=== PATIENT | female | born 1965 | race Caucasian/White ===

== ENCOUNTER 2017-11-29 19:44 | Inpatient (IN) | payer SELFPAY ==
[~2017-11-29] VITALS: Ht 160 cm; Wt 108.6 kg
[2017-11-29] MEDS ORDERED: ALBUT/IPRATROP 3MG/0.5MG NEB 3 ML VIAL INH STA (20:09)
[2017-11-29] MEDS ORDERED: KETOROLAC TROMETHAMINE 30 MG/ML VIAL IV STA (20:09)
[2017-11-29] MEDS ORDERED: ACETAMINOPHEN 500 MG TAB PO STA (20:09)
[2017-11-29] MEDS ORDERED: SODIUM CHLORIDE 0.9% 1000ML 1,000 ML IV ONE (20:15)
--- NOTE | 2017-11-29 20:16 | EMERGENCY ROOM VISIT NOTE ---
History First contact with patient: 19:55 Chief Complaint: COUGH Stated Complaint: COUGH, VERY TIRED, LITTLE APPETITE Nursing Triage Summary: Cough with green expectorant for 4 days. Pt taking OTC meds with no relief. Pt' s O2 sats on arrival to room in 70's and 80's on room air. History of Present Illness The patient is a 52 year old female who presents to the Emergency Room with complaints of cough, fatigue and some shortness of breath for 1 week. She also has experienced nausea with one episode of vomiting. She has been coughing up green sputum. The patient has tried [id number] Tylenol cold and flu with no relief. She denies any known sick contacts. She did not get her flu vaccine this year. She denies any history of pulmonary disease. She denies any pain in her chest. Review of Systems 10 system review performed and negative unless noted in HPI or below Past Medical/Surgical History Otherwise healthy Social History Smoking Status: Never Smoker Occupation Status: unemployed Current/Historical Medications Scheduled Ascorbic Acid (Vitamin C), 1 CAP PO BID Multivitamins/Minerals (Mvi With Minerals), 1 TAB PO DAILY Scheduled PRN [id number] W/ Apap (Tylenol Cold & Flu Severe), 2 TABS PO TID PRN for FLU SYMPTOMS Physical Exam Vital Signs Date Time Temp Pulse Resp B/P (MAP) Pulse Ox O2 Delivery O2 Flow Rate FiO2 11/29/17 21:47 81 20 129/65 95 Nasal Cannula 4.0 11/29/17 20:06 Room Air 11/29/17 20:04 101 11/29/17 20:02 75 Room Air 11/29/17 20:01 Nasal Cannula 4.0 11/29/17 19:50 37.3 106 20 126/69 88 Room Air Physical Exam VITALS: Vitals are noted on the nurse's note and reviewed by myself. Vital signs stable. GENERAL: 52-year-old female, acutely ill in appearance,, SKIN: The skin was without rashes, erythema, edema, or bruising. HEAD: Normocephalic atraumatic. MOUTH: Mucous membranes dry. NECK: Supple without nuchal rigidity. No lymphadenopathy. Cervical spine is nontender. No JVD. HEART: Tachycardic, regular rhythm without murmurs gallops or rubs. LUNGS: Crackles at the left base. No significant wheezing. Positive tachypnea. ABDOMEN: Positive bowel sounds x 4.Soft, nontender, without organomegaly. No guarding or rebound tenderness. MUSCULOSKELETAL: No muscle atrophy, erythema, or edema noted. Strength 5/5 throughout. NEURO: Patient was alert and oriented to person place and time. Normal sensation to touch. No focal neurological deficits. Medical Decision & Procedures ER Provider Diagnostic Interpretation: Chest x-ray IMPRESSION: There is multifocal patchy airspace consolidation, typical in appearance for pneumonia. Clinical correlation will be required and radiographic follow-up to resolution is recommended. Electronically signed by: Anthony Jason M.D. 11/29/2017 9:43 PM Dictated Date/Time: 11/29/2017 9:42 PM The status of this report is Signed. Draft = Not yet reviewed or approved by Radiologist. Signed = Reviewed and approved by Radiologist. <AttendingPhy></AttendingPhy> <FamilyPhy>No Doctor, Assigned</FamilyPhy> < PrimaryPhy>No Doctor, Assigned</PrimaryPhy> <UnitNumber>[id number]</UnitNumber> <VisitNumber>[id number]</VisitNumber> <PatientName>DIANA CHAPMAN Grant</ PatientName> <DateOfBirth>1965</DateOfBirth> <Location>[facility]</Location> < ServiceDate>11/29/17</ServiceDate> <MNE>ESINDI</MNE> <OrderingPhy>Amy Pat PA-C</OrderingPhy> <OrderingPhyMNE>f rep ord dr carvalho</OrderingPhyMNE> < DictatingPhyMNE>f rep dict dr carvalho</DictatingPhyMNE> <CCListMNE>f rep ct mne</ CCListMNE> <AdmittingPhyMNE>f pt admit dr carvalho</AdmittingPhyMNE> <AttendingPhyMNE >f pt attend dr carvalho</AttendingPhyMNE> <ConsultingPhyMNE>f pt consult dr carvalho</ConsultingPhyMNE> <FamilyPhyMNE>f pt fam dr carvalho</FamilyPhyMNE> <OtherPhyMNE>f pt other dr carvalho</OtherPhyMNE Laboratory Results 11/29/17 20:10 Red Blood Count 4.28, Mean Corpuscular Volume 93.0, Mean Corpuscular Hemoglobin 32.0, Mean Corpuscular Hemoglobin Concent 34.4, Mean Platelet Volume 10.4, Neutrophils (%) (Auto) 60.5, Lymphocytes (%) (Auto) 29.6, Monocytes (%) (Auto) 9.5, Eosinophils (%) (Auto) 0.0, Basophils (%) (Auto) 0.2, Neutrophils # (Auto) 2.74, Lymphocytes # (Auto) 1.34, Monocytes # (Auto) 0.43, Eosinophils # (Auto) 0.00, Basophils # (Auto) 0.01 11/29/17 20:10 Test 11/29/17 20:05 11/29/17 20:10 Influenza Type A Antigen Neg for Influ A (NEG) Influenza Type B Antigen Neg for Influ B (NEG) White Blood Count 4.53 K/uL (4.8-10.8) Red Blood Count 4.28 M/uL (4.2-5.4) Hemoglobin 13.7 g/dL (12.0-16.0) Hematocrit 39.8 % (37-47) Mean Corpuscular Volume 93.0 fL (80-100) Mean Corpuscular Hemoglobin 32.0 pg (25-34) Mean Corpuscular Hemoglobin Concent 34.4 g/dl (32-36) Platelet Count 177 K/uL (130-400) Mean Platelet Volume 10.4 fL (7.4-10.4) Neutrophils (%) (Auto) 60.5 % Lymphocytes (%) (Auto) 29.6 % Monocytes (%) (Auto) 9.5 % Eosinophils (%) (Auto) 0.0 % Basophils (%) (Auto) 0.2 % Neutrophils # (Auto) 2.74 K/uL (1.4-6.5) Lymphocytes # (Auto) 1.34 K/uL (1.2-3.4) Monocytes # (Auto) 0.43 K/uL (0.11-0.59) Eosinophils # (Auto) 0.00 K/uL (0-0.5) Basophils # (Auto) 0.01 K/uL (0-0.2) RDW Standard Deviation 46.9 fL (36.4-46.3) RDW Coefficient of Variation 13.8 % (11.5-14.5) Immature Granulocyte % (Auto) 0.2 % Immature Granulocyte # (Auto) 0.01 K/uL (0.00-0.02) Anion Gap 8.0 mmol/L (3-11) Est Creatinine Clear Calc Drug Dose 93.8 ml/min Estimated GFR () 95.4 Estimated GFR (Non- 82.3 BUN/Creatinine Ratio 18.4 (10-20) Calcium Level 8.4 mg/dl (8.5-10.1) Total Bilirubin 0.3 mg/dl (0.2-1) Aspartate Amino Transf (AST/SGOT) 101 U/L (15-37) Alanine Aminotransferase (ALT/SGPT) 50 U/L (12-78) Alkaline Phosphatase 80 U/L (45-117) Total Protein 7.2 gm/dl (6.4-8.2) Albumin 2.8 gm/dl (3.4-5.0) Globulin 4.4 gm/dl (2.5-4.0) Albumin/Globulin Ratio 0.6 (0.9-2) Medications Administered Medications (Trade) Dose Ordered Sig/Roxanne Route Start Time Stop Time Status Last Admin Dose Admin Sodium Chloride 1,000 ml @ 999 mls/hr Q1H1M ONCE IV 11/29/17 20:15 11/29/17 21:15 DC 11/29/17 20:22 999 MLS/HR Ketorolac Tromethamine (Toradol Inj) 30 mg NOW STAT IV 11/29/17 20:09 11/29/17 20:11 DC 11/29/17 20:21 30 MG Acetaminophen (Tylenol Tab) 1,000 mg NOW STAT PO 11/29/17 20:09 11/29/17 20:11 DC 11/29/17 20:21 1,000 MG Albuterol/ Ipratropium (Duoneb) 3 ml ONE STAT INH 11/29/17 20:09 11/29/17 20:11 DC 11/29/17 20:21 3 ML Levofloxacin (Levaquin / D5W) 750 mg NOW ONCE IV 11/29/17 22:00 11/29/17 22:01 DC 11/29/17 21:57 750 MG ED Course Patient was seen and examined Vital signs including blood pressure were reviewed medications list was verified with patient Labs were obtained, and a saline lock was established The patient was medicated with Toradol 30 mg IV and Tylenol 1 g by mouth. She was hydrated with 1 L of normal saline. She was also given a DuoNeb treatment. Imaging was performed and reviewed The patient was reassessed. She was more comfortable. We discussed the results of her workup. She voiced understanding. Patient was given 1 dose of Levaquin 750 mg IV The case was discussed with case management and subsequently the [facility] service. They kindly agreed to admit the patient for further treatment Medical Decision Differential diagnosis: Bronchitis, pneumonia, influenza, other viral syndrome, This patient is a 52-year-old female that presents to the emergency department with flulike symptoms. On exam, she was tachypneic here check crackles at the left base. She was hypoxic. She was dehydrated. The patient's workup reveals a multifocal pneumonia. The patient remained hypoxic on room air. I do not feel comfortable sending this patient home. She does not have a primary care physician. She is not compliant. She will need to be admitted for further treatment. The patient is in agreement with this plan. This chart was completed in part utilizing [employer] Speech Voice Recognition software. Attempts were made to minimize the grammatical errors, random word insertions, pronoun errors and incomplete sentences. Any formal questions or concerns about the content, text or information contained within the body of this dictation should be directly addressed to the provider for clarification. Impression Primary Impression: Community acquired pneumonia Departure Information Referrals No Doctor, Assigned (PCP) Patient Instructions [facility]
[2017-11-29 20:20] LABS: BASO % 0.2 %; BASO ABS # 0.01 K/uL (0-0.2); HEMATOCRIT 39.8 % (37-47); HEMOGLOBIN 13.7 g/dL (12.0-16.0); IG# 0.01 K/uL (0.00-0.02); LYMPH % 29.6 %; LYMPH ABS # 1.34 K/uL (1.2-3.4); MEAN CORPUSCULAR HGB CONC 34.4 g/dl (32-36); MEAN PLATELET VOLUME 10.4 fL (7.4-10.4); MONO % 9.5 %; MONO ABS # 0.43 K/uL (0.11-0.59); NEUT % 60.5 %; NEUT ABS # 2.74 K/uL (1.4-6.5); PLATELET COUNT 177 K/uL (130-400); RED CELL DISTRIBUTION WIDTH CV 13.8 % (11.5-14.5); RED CELL DISTRIBUTION WIDTH SD 46.9 fL (36.4-46.3); WHITE BLOOD COUNT 4.53 K/uL (4.8-10.8)
[2017-11-29] MEDS ORDERED: ASCO1CAP3 PO (20:35)
[2017-11-29] MEDS ORDERED: PHEN-582 PO (20:35)
[2017-11-29] MEDS ORDERED: MULT-513 PO (20:35)
[2017-11-29 20:40] LABS: ALBUMIN 2.8 gm/dl (3.4-5.0); CALCIUM 8.4 mg/dl (8.5-10.1); CREATININE 0.81 mg/dl (0.60-1.20)
[2017-11-29 20:43] LABS: TOTAL PROTEIN 7.2 gm/dl (6.4-8.2)
[2017-11-29 21:06] LABS: INFLUENZA B ANTIGEN Neg for Influ B (NEG)
--- NOTE | 2017-11-29 21:44 | DIAGNOSTIC IMAGING REPORT ---
TWO VIEW CHEST CLINICAL HISTORY: Cough and fever. FINDINGS: PA and lateral chest radiographs are obtained. No prior studies are available for comparison at the time of dictation. The cardiomediastinal silhouette is unremarkable. There is multifocal patchy airspace consolidation, most confluence in the right midlung and the left mid to lower lung. No pleural effusion is identified. There is no pneumothorax. The bony thorax appears intact. IMPRESSION: There is multifocal patchy airspace consolidation, typical in appearance for pneumonia. Clinical correlation will be required and radiographic follow-up to resolution is recommended. Electronically signed by: Anthony Jason M.D. 11/29/2017 9:43 PM Dictated Date/Time: 11/29/2017 9:42 PM
[2017-11-29] MEDS ORDERED: LEVAQUIN 750MG / 150ML D5W IV ONE (22:00)
[2017-11-30] VITALS (9 sets, daily range): BP systolic 118–135; BP diastolic 69–81; PULSE 74–96; TEMP 36.3–36.9; O2SAT 90–96; Ht 160 cm; Wt 108.6 kg
[2017-11-30] MEDS ORDERED: ACETAMINOPHEN 325 MG TAB PO PRN (00:15)
[2017-11-30] MEDS ORDERED: POLYETHYLENE (MIRALAX) 17 GM PACK PO PRN (00:15)
[2017-11-30] MEDS ORDERED: MAGNESIUM HYDROXIDE SUSP 30 ML UDC PO PRN (00:15)
[2017-11-30] MEDS ORDERED: ONDANSETRON INJ 2 MG/ML 2 ML VIAL IV PRN (00:15)
--- NOTE | 2017-11-30 00:48 | History and Physical ---
History & Physical Date & Time of Service: Nov 30, 2017 at 00:20 Chief Complaint: Cough, Very Tired, Little Appetite Primary Care Physician: No Doctor, Assigned History of Present Illness Source: patient Patient is a 52 year old female with no significant past medical history that presents with a 1 week history of cough and fatigue. The patient states that her cough has progressed over the last week with productive clear to greenish sputum. She appreciates having sweats, chills, and intermittent fevers ( undocumented) over the last week as well. She denies any shortness of breath or muscle aches but appreciates wheezing. The patient does not have health insurance and has not followed with a doctor over the last 20 years, although she is generally healthy. She also appreciates feeling nauseous and having an episode of vomiting with minimal appetite. Social History Smoking Status: Never Smoker Occupational Status: unemployed Allergies Coded Allergies: Penicillins (Verified Allergy, Severe, swelling, 11/29/17) Home Medications Scheduled Ascorbic Acid (Vitamin C), 1 CAP PO BID Multivitamins/Minerals (Mvi With Minerals), 1 TAB PO DAILY Scheduled PRN Qtirjjlncphop-Yn-[id number] W/ Apap (Tylenol Cold & Flu Severe), 2 TABS PO TID PRN for FLU SYMPTOMS Review of Systems Constitutional: + fatigue, No fever, No chills, No sweats Respiratory: + cough, + sputum, + wheezing, No shortness of breath Cardiovascular: No chest pain, No palpitations Abdomen: + nausea, No pain, No vomiting, No diarrhea, No constipation Musculoskeletal: No joint pain, No muscle pain Genitourinary - Female: No dysuria Physical Exam Vital Signs Date Time Temp Pulse Resp B/P (MAP) Pulse Ox O2 Delivery O2 Flow Rate FiO2 11/30/17 00:02 37.2 80 20 123/60 95 Nasal Cannula 4.0 11/29/17 21:47 81 20 129/65 95 Nasal Cannula 4.0 11/29/17 20:06 Room Air 11/29/17 20:04 101 11/29/17 20:02 75 Room Air 11/29/17 20:01 Nasal Cannula 4.0 11/29/17 19:50 37.3 106 20 126/69 88 Room Air General Appearance: WD/WN, no apparent distress, + obese Head: normocephalic, atraumatic Eyes: normal inspection, sclerae normal Respiratory/Chest: chest non-tender, no respiratory distress, no accessory muscle use, + crackles, + wheezing Cardiovascular: regular rate, rhythm, no edema, no gallop Abdomen/GI: normal bowel sounds, non tender, soft Extremities/Musculoskelatal: no calf tenderness, no pedal edema Neurologic/Psych: alert, normal mood/affect, oriented x 3 Diagnostics Laboratory Results Results Past 24 Hours Test 11/29/17 20:05 11/29/17 20:10 Range/Units Influenza Type A Antigen Neg for Influ A NEG Influenza Type B Antigen Neg for Influ B NEG White Blood Count 4.53 4.8-10.8 K/uL Red Blood Count 4.28 4.2-5.4 M/uL Hemoglobin 13.7 12.0-16.0 g/dL Hematocrit 39.8 37-47 % Mean Corpuscular Volume 93.0 80-100 fL Mean Corpuscular Hemoglobin 32.0 25-34 pg Mean Corpuscular Hemoglobin Concent 34.4 32-36 g/dl Platelet Count 177 130-400 K/uL Mean Platelet Volume 10.4 7.4-10.4 fL Neutrophils (%) (Auto) 60.5 % Lymphocytes (%) (Auto) 29.6 % Monocytes (%) (Auto) 9.5 % Eosinophils (%) (Auto) 0.0 % Basophils (%) (Auto) 0.2 % Neutrophils # (Auto) 2.74 1.4-6.5 K/uL Lymphocytes # (Auto) 1.34 1.2-3.4 K/uL Monocytes # (Auto) 0.43 0.11-0.59 K/uL Eosinophils # (Auto) 0.00 0-0.5 K/uL Basophils # (Auto) 0.01 0-0.2 K/uL RDW Standard Deviation 46.9 36.4-46.3 fL RDW Coefficient of Variation 13.8 11.5-14.5 % Immature Granulocyte % (Auto) 0.2 % Immature Granulocyte # (Auto) 0.01 0.00-0.02 K/uL Sodium Level 137 136-145 mmol/L Potassium Level 4.0 3.5-5.1 mmol/L Chloride Level 102 98-107 mmol/L Carbon Dioxide Level 26 21-32 mmol/L Anion Gap 8.0 3-11 mmol/L Blood Urea Nitrogen 15 7-18 mg/dl Creatinine 0.81 0.60-1.20 mg/dl Est Creatinine Clear Calc Drug Dose 93.8 ml/min Estimated GFR () 95.4 Estimated GFR (Non- 82.3 BUN/Creatinine Ratio 18.4 10-20 Random Glucose 97 70-99 mg/dl Calcium Level 8.4 8.5-10.1 mg/dl Total Bilirubin 0.3 0.2-1 mg/dl Aspartate Amino Transf (AST/SGOT) 101 15-37 U/L Alanine Aminotransferase (ALT/SGPT) 50 12-78 U/L Alkaline Phosphatase 80 45-117 U/L Total Protein 7.2 6.4-8.2 gm/dl Albumin 2.8 3.4-5.0 gm/dl Globulin 4.4 2.5-4.0 gm/dl Albumin/Globulin Ratio 0.6 0.9-2 Impression Assessment and Plan Patient is a 52 year old female with no significant past medical history that presents with a 1 week history of cough and fatigue Community Acquired Pneumonia - CXR: There is multifocal patchy airspace consolidation, typical in appearance for pneumonia. Clinical correlation will be required and radiographic follow-up to resolution is recommended. - WBC 4.53 (L) --> Repeat CBC, BMP tomorrow AM - Levaquin 750mg IV q24h (Severe Allergy to penicillin) - Supplemental Oxygen to maintain SpO2 > 90% - Duonebs qid + q3h PRN for SOB - IV NS @ 100mls/hr - Regular Diet DVT - Lovenox Code Status - Full Resuscitation Resident Physician Supervision Note: I was present with Dr. Alvarado during the history and exam. I discussed the case with the resident and agree with the findings and plan as documented in the note. Any exceptions or clarifications are listed here: 52 y/o F who denies a PMH but has not visited a physician in 20 yrs. Presents with SOB, productive cough and fever. CXR is consistent with multifocal PNM. Her 02 sat was as low as mid 70s without 02. OE AAO x 3 1,2 R BL crackles present NT, ND No CCE P: Placed on abx, nebs, 02 - cultures are pending Documented By: Lamin Torres Resuscitation Status Full Code VTE Prophylaxis Will order VTE Prophylaxis: Yes Resident Tracking Resident Involvement: Resident Care Provided Care Provided: Adult Hospital Medicine
[2017-11-30] MEDS: SODIUM CHLORIDE 0.9% 1000ML 1,000 ML IV SCH ×2 (01:58→13:12)
[2017-11-30] MEDS: ALBUT/IPRATROP 3MG/0.5MG NEB 3 ML VIAL INH SCH ×4 (07:05→19:38)
[2017-11-30 07:12] LABS: BASO % 0.3 %; BASO ABS # 0.01 K/uL (0-0.2); HEMATOCRIT 36.4 % (37-47); HEMOGLOBIN 12.3 g/dL (12.0-16.0); IG# 0.01 K/uL (0.00-0.02); LYMPH % 40.7 %; LYMPH ABS # 1.49 K/uL (1.2-3.4); MEAN CELL VOLUME 93.8 fL (80-100); MEAN CORPUSCULAR HEMOGLOBIN 31.7 pg (25-34); MEAN CORPUSCULAR HGB CONC 33.8 g/dl (32-36); MEAN PLATELET VOLUME 9.9 fL (7.4-10.4); MONO % 8.5 %; MONO ABS # 0.31 K/uL (0.11-0.59); NEUT % 50.2 %; NEUT ABS # 1.84 K/uL (1.4-6.5); PLATELET COUNT 184 K/uL (130-400); RED CELL DISTRIBUTION WIDTH CV 13.8 % (11.5-14.5); RED CELL DISTRIBUTION WIDTH SD 47.5 fL (36.4-46.3); WHITE BLOOD COUNT 3.66 K/uL (4.8-10.8)
[2017-11-30] MEDS: ENOXAPARIN 40 MG/0.4 ML SYR SQ SCH (08:47)
--- NOTE | 2017-11-30 14:23 | Hospitalist Progress Note ---
Hospitalist Progress Note Date of Service Nov 30, 2017. (Alondra Nesbitt PA-C) Subjective Pt evaluation today including: conversation w/ patient, physical exam, chart review, lab review, review of studies Pain: None PO Intake: Good Voiding: no voiding problems The patient was seen and examined this morning. Her symptoms of initial cough, sore throat, and nausea with 1 episode of vomiting started 1 week ago, on Thursday she thought she was starting to feel improved, but then began to notice progressive shortness of breath with simple things like walking in a grocery store. Pt reports doing better today. She has been ambulating about the room without difficulty and not feeling short of breath. She is still wearing 2 L O2 and reports feeling better with this. She is tolerating a diet without difficulty, and reports improvement in her appetite. She denies fever, chills or sweats overnight. No chest pain, palpitations, flutter or shortness of breath at rest. She had one loose bowel movement today. Constitutional: No fever, No chills, No sweats, No fatigue ENT: No nasal symptoms, No sore throat Respiratory: + cough, + sputum (white, occasional), No wheezing, No dyspnea at rest Cardiovascular: No chest pain, No palpitations Abdomen: No pain, No nausea, No vomiting, No diarrhea, No constipation Musculoskeletal: No joint pain, No muscle pain Female : No dysuria Neurologic: No weakness Endo: No fatigue (Alondra Nesbitt PA-C) Objective Vital Signs Date Time Temp Pulse Resp B/P (MAP) Pulse Ox O2 Delivery O2 Flow Rate FiO2 11/30/17 11:07 93 16 94 Nasal Cannula 2.0 11/30/17 10:24 Nasal Cannula 2.0 11/30/17 08:19 36.9 83 20 118/73 (88) 93 Nasal Cannula 2.0 11/30/17 07:10 74 16 94 Nasal Cannula 2.0 11/30/17 02:25 Nasal Cannula 2.0 11/30/17 02:04 36.7 92 20 135/69 90 Room Air 11/30/17 01:22 80 20 133/75 94 Nasal Cannula 2.0 11/30/17 00:02 37.2 80 20 123/60 95 Nasal Cannula 4.0 11/29/17 21:47 81 20 129/65 95 Nasal Cannula 4.0 11/29/17 20:06 Room Air 11/29/17 20:04 101 11/29/17 20:02 75 Room Air 11/29/17 20:01 Nasal Cannula 4.0 11/29/17 19:50 37.3 106 20 126/69 88 Room Air (Alondra Nesbitt PA-C) Physical Exam General Appearance: WD/WN, no apparent distress, + obese (morbid) Eyes: PERRL, EOMI ENT: hearing grossly normal, pharynx normal Neck: supple, no JVD Respiratory/Chest: chest non-tender, no respiratory distress, no accessory muscle use, + pertinent finding (on 2 L via NC, + faint crackles in the RML, RLL and the left mid to lower lobe. No wheezing. ) Cardiovascular: regular rate, rhythm, no murmur Abdomen: normal bowel sounds, non tender, soft Extremities: non-tender, no pedal edema, no calf tenderness Neurologic/Psychiatric: alert, oriented x 3, + pertinent finding (slightly anxious affect) Skin: normal color, warm/dry (Alondra Nesbitt, PA-C) Laboratory Results Last 24 Hours Test 11/29/17 20:05 11/29/17 20:10 11/30/17 01:00 11/30/17 06:35 Influenza Type A Antigen Neg for Influ A Influenza Type B Antigen Neg for Influ B White Blood Count 4.53 K/uL 3.66 K/uL Red Blood Count 4.28 M/uL 3.88 M/uL Hemoglobin 13.7 g/dL 12.3 g/dL Hematocrit 39.8 % 36.4 % Mean Corpuscular Volume 93.0 fL 93.8 fL Mean Corpuscular Hemoglobin 32.0 pg 31.7 pg Mean Corpuscular Hemoglobin Concent 34.4 g/dl 33.8 g/dl Platelet Count 177 K/uL 184 K/uL Mean Platelet Volume 10.4 fL 9.9 fL Neutrophils (%) (Auto) 60.5 % 50.2 % Lymphocytes (%) (Auto) 29.6 % 40.7 % Monocytes (%) (Auto) 9.5 % 8.5 % Eosinophils (%) (Auto) 0.0 % 0.0 % Basophils (%) (Auto) 0.2 % 0.3 % Neutrophils # (Auto) 2.74 K/uL 1.84 K/uL Lymphocytes # (Auto) 1.34 K/uL 1.49 K/uL Monocytes # (Auto) 0.43 K/uL 0.31 K/uL Eosinophils # (Auto) 0.00 K/uL 0.00 K/uL Basophils # (Auto) 0.01 K/uL 0.01 K/uL RDW Standard Deviation 46.9 fL 47.5 fL RDW Coefficient of Variation 13.8 % 13.8 % Immature Granulocyte % (Auto) 0.2 % 0.3 % Immature Granulocyte # (Auto) 0.01 K/uL 0.01 K/uL Sodium Level 137 mmol/L Potassium Level 4.0 mmol/L Chloride Level 102 mmol/L Carbon Dioxide Level 26 mmol/L Anion Gap 8.0 mmol/L Blood Urea Nitrogen 15 mg/dl Creatinine 0.81 mg/dl Est Creatinine Clear Calc Drug Dose 93.8 ml/min Estimated GFR () 95.4 Estimated GFR (Non- 82.3 BUN/Creatinine Ratio 18.4 Random Glucose 97 mg/dl Calcium Level 8.4 mg/dl Total Bilirubin 0.3 mg/dl Aspartate Amino Transf (AST/SGOT) 101 U/L Alanine Aminotransferase (ALT/SGPT) 50 U/L Alkaline Phosphatase 80 U/L Total Protein 7.2 gm/dl Albumin 2.8 gm/dl Globulin 4.4 gm/dl Albumin/Globulin Ratio 0.6 Urine Color YELLOW Urine Appearance CLEAR Urine pH 5.5 Urine Specific [place] 1.019 Urine Protein 2+ Urine Glucose (UA) NEG Urine Ketones TRACE Urine Occult Blood NEG Urine Nitrite NEG Urine Bilirubin NEG Urine Urobilinogen NEG Urine Leukocyte Esterase NEG Urine WBC (Auto) 1-5 /hpf Urine RBC (Auto) 5-10 /hpf Urine Hyaline Casts (Auto) 5-10 /lpf Urine Epithelial Cells (Auto) >30 /lpf Urine Bacteria (Auto) NEG Urine Pathogenic Casts 5-10 GRANULAR CASTS /lpf Prothrombin Time 11.0 SECONDS Prothromb Time International Ratio 1.0 (Alondra Nesbitt PA-C) Assessment and Plan Patient is a 52 year old female with no significant past medical history that presents with a 1 week history of cough and fatigue Community Acquired Pneumonia Right midlung and the left mid to lower lung. - CXR: There is multifocal patchy airspace consolidation, typical in appearance for pneumonia. Clinical correlation will be required and radiographic follow-up to resolution is recommended. - WBC 4.53 (L) --> Repeat CBC, BMP tomorrow AM - Levaquin 750mg IV q24h x 7 day course started on 11/29. - Supplemental Oxygen to maintain SpO2 > 90% - nursing asked to do a nonformal 2 step today, also encourage ambulation. - Duonebs qid + q3h PRN for SOB - Stop IVFs as pt is tolerating a regular diet and drinking without nausea or vomiting. - Regular Diet DVT- Lovenox Code Status - Full Resuscitation Disposition: From home, lives alone, does not have a PCP, will need to establish prior to discharge - possible in 24 hours. (Alondra Nesbitt, CHIDIC) Reviewed: Pt Seen/Exam by Me (Monet Werner, ) History Feeling improved. Tried to walk the halls without O2 but sats dropped. Doing well at rest. Tolerating PO. Better but not at baseline. Agree with HPI/ROS as per PA (Monet Werner, DO) General Appearance: no apparent distress, obese Eye Exam: bilateral eye normal inspection, bilateral eye other (nml sclera) Respiratory: normal breath sounds, no respiratory distress Cardiovascular: normal peripheral pulses, regular rate, rhythm Gastrointestinal: non tender, soft Extremities: non-tender, no pedal edema Neurologic/Psychiatric: alert, normal mood/affect, oriented x 3 Skin Characteristics: normal color, warm/dry (Monet Werner, DO) Assessment/Plan Agree with plan as outlined above CAP with hypoxia, improving on abx Wean O2 as able no hx of baseline lung disease or home o2 use Flu neg (Monet Werner, DO)
[2017-11-30] MEDS: LEVOFLOXACIN / D5W 750 MG in PREMIXED IN D5W 150 ML IV SCH (21:29)
[2017-12-01] VITALS (9 sets, daily range): BP systolic 134–156; BP diastolic 86–88; PULSE 83–98; TEMP 36.6–36.7; O2SAT 84–99
[2017-12-01] MEDS: ALBUT/IPRATROP 3MG/0.5MG NEB 3 ML VIAL INH SCH ×4 (07:10→19:32)
[2017-12-01 08:10] LABS: HEMATOCRIT 34.1 % (37-47); HEMOGLOBIN 11.6 g/dL (12.0-16.0); MEAN CELL VOLUME 93.9 fL (80-100); MEAN PLATELET VOLUME 9.8 fL (7.4-10.4); PLATELET COUNT 208 K/uL (130-400); RED CELL DISTRIBUTION WIDTH CV 13.6 % (11.5-14.5); WHITE BLOOD COUNT 3.19 K/uL (4.8-10.8)
[2017-12-01] MEDS: ENOXAPARIN 40 MG/0.4 ML SYR SQ SCH (08:10)
[2017-12-01 08:42] LABS: CALCIUM 8.9 mg/dl (8.5-10.1); CREATININE 0.61 mg/dl (0.60-1.20); POTASSIUM 3.8 mmol/L (3.5-5.1)
--- NOTE | 2017-12-01 15:15 | Hospitalist Progress Note ---
Hospitalist Progress Note Date of Service Dec 01, 2017. (Alondra Nesbitt PA-C) Subjective Pt evaluation today including: conversation w/ patient, physical exam, chart review, lab review, review of studies Pain: None PO Intake: Good Voiding: no voiding problems The patient was seen and examined this morning. Patient reports feeling improved compared to yesterday. She has been up and ambulating about the halls felt significantly short of breath yesterday. She has not yet been up to walk around today. Patient notes her cough is less significant, but that she is still bringing up small amount of white sputum. She denies any sort of shortness of breath at rest. She denies any fevers, chills or sweats overnight. A good prescription card was handed to her for reduction in cost as she does not have insurance. Patient has also been set up for follow-up with Sai Schmitt as an outpatient for follow up and she is questioning the cost of this appointment. Discussion was held regarding cost of follow-up appointment compared to an ER versus hospital stay and she is agreeable to going to the follow up appointment. Case management has looked into the cost of Levaquin and has found to be only $9 [facility] so that this is affordable for her at the time of discharge. Additional Comments: Constitutional: No fever, No chills, No sweats, No fatigue ENT: No nasal symptoms, No sore throat Respiratory: + cough, + sputum (white, occasional), No wheezing, No dyspnea at rest Cardiovascular: No chest pain, No palpitations Abdomen: No pain, No nausea, No vomiting, No diarrhea, No constipation Musculoskeletal: No joint pain, No muscle pain Female : No dysuria Neurologic: No weakness Endo: No fatigue (Alondra Nesbitt PA-C) Objective Vital Signs Date Time Temp Pulse Resp B/P (MAP) Pulse Ox O2 Delivery O2 Flow Rate FiO2 12/01/17 11:19 88 16 91 Room Air 12/01/17 08:00 95 Nasal Cannula 2.0 12/01/17 07:10 83 16 93 Nasal Cannula 2.0 12/01/17 06:59 36.7 85 20 134/87 (103) 95 2.0 12/01/17 00:00 Nasal Cannula 2.0 11/30/17 23:29 36.9 96 20 121/73 (89) 96 2.0 11/30/17 19:39 92 16 94 Nasal Cannula 2.0 11/30/17 16:00 91 Nasal Cannula 2.0 11/30/17 15:39 36.3 96 24 124/81 (95) 93 2.0 11/30/17 15:32 85 16 93 Nasal Cannula 2.0 (Alondra Nesbitt PA-C) Physical Exam Notes: General Appearance: WD/WN, no apparent distress, + obese (morbid) Eyes: PERRL, EOMI ENT: hearing grossly normal, pharynx normal Neck: supple, no JVD Respiratory/Chest: chest non-tender, no respiratory distress, no accessory muscle use, + pertinent finding (on room air, + faint crackles in the RML and RLL sounds slightly improved, crackles also in left mid to lower lobe.+ Expiratory wheezing in Lmid to lower lobe ) Cardiovascular: regular rate, rhythm, no murmur Abdomen: normal bowel sounds, non tender, soft Extremities: non-tender, no pedal edema, no calf tenderness Neurologic/Psychiatric: alert, oriented x 3 Skin: normal color, warm/dry (Alondra Nesbitt PA-C) Laboratory Results Last 24 Hours Test 12/01/17 07:48 White Blood Count 3.19 K/uL Red Blood Count 3.63 M/uL Hemoglobin 11.6 g/dL Hematocrit 34.1 % Mean Corpuscular Volume 93.9 fL Mean Corpuscular Hemoglobin 32.0 pg Mean Corpuscular Hemoglobin Concent 34.0 g/dl RDW Standard Deviation 47.0 fL RDW Coefficient of Variation 13.6 % Platelet Count 208 K/uL Mean Platelet Volume 9.8 fL Sodium Level 138 mmol/L Potassium Level 3.8 mmol/L Chloride Level 105 mmol/L Carbon Dioxide Level 25 mmol/L Anion Gap 8.0 mmol/L Blood Urea Nitrogen 8 mg/dl Creatinine 0.61 mg/dl Est Creatinine Clear Calc Drug Dose 124.6 ml/min Estimated GFR () 119.1 Estimated GFR (Non- 102.8 BUN/Creatinine Ratio 13.7 Random Glucose 105 mg/dl Calcium Level 8.9 mg/dl (Filipowicz,Alondra G., PA-C) Assessment and Plan Patient is a 52 year old female with no significant past medical history that presents with a 1 week history of cough and fatigue Community Acquired Pneumonia Right midlung and the left mid to lower lung. - CXR: There is multifocal patchy airspace consolidation, typical in appearance for pneumonia. Clinical correlation will be required and radiographic follow-up to resolution is recommended. - WBC 3K, low but remains stable. Will follow. - Levaquin 750mg IV q24h started on 11/29. - CM has been on the Levaquin will only cost $9 at [facility]. Will complete a 7 day course. - Supplemental Oxygen to maintain SpO2 > 90% - encourage ambulation. -Patient was not on any oxygen at home, wean as tolerated. - Duonebs qid + q3h PRN for SOB - Continue regular diet and drinking without nausea or vomiting. - Regular Diet DVT- Lovenox, ambulatory Code Status - Full Resuscitation Disposition: From home, lives alone, does not have a PCP- set up with Sai Schmitt as an outpatient. Likely discharge tomorrow. (Alondra Nesbitt PA-C) Reviewed: Pt Seen/Exam by Me (Monet Werner DO) History Pt continues to desat with ambulation without O2. Feels fine with both rest and ambulation, but is low when they check her. Tolerating PO. Agree with HPI/ROS as noted by PA (Monet Werner, ) General Appearance: no apparent distress, obese Eye Exam: bilateral eye normal inspection, bilateral eye other (nml sclera) Respiratory: no respiratory distress, crackles Cardiovascular: normal peripheral pulses, regular rate, rhythm Gastrointestinal: non tender, soft Extremities: non-tender, no pedal edema Neurologic/Psychiatric: alert, normal mood/affect Skin Characteristics: normal color, warm/dry (Monet Werner DO) Assessment/Plan Agree with plan as outlined above CAP with hypoxia, improving on abx Wean O2 as able no hx of baseline lung disease or home o2 use Flu neg (Monet Werner, )
[2017-12-01] MEDS: LEVOFLOXACIN / D5W 750 MG in PREMIXED IN D5W 150 ML IV SCH (21:27)
[2017-12-02 07:07] VITALS: PULSE 87; O2SAT 94
[2017-12-02] MEDS: ALBUT/IPRATROP 3MG/0.5MG NEB 3 ML VIAL INH SCH ×4 (07:07→19:46)
[2017-12-02 07:34] VITALS: BP 122/79; PULSE 92; TEMP 36.8; O2SAT 91
[2017-12-02] MEDS: ENOXAPARIN 40 MG/0.4 ML SYR SQ SCH (08:11)
[2017-12-02 11:04] VITALS: PULSE 102; O2SAT 97
[2017-12-02] MEDS ORDERED: OPTIRAY 320 IV PRN (11:15)
--- NOTE | 2017-12-02 12:47 | DIAGNOSTIC IMAGING REPORT ---
(CHEST FOR PE) ANGIO WITH CT DOSE: 493.65 mGy.cm HISTORY: Chest pain dyspnea TECHNIQUE: Multiaxial CT images of the chest were performed following the intravenous administration of contrast to evaluate the pulmonary arteries. Maximal intensity projection images were also obtained. A dose lowering technique was utilized adhering to the principles of ALARA. COMPARISON STUDY: None. FINDINGS: Diffuse bilateral parenchymal infiltrative change. The thoracic aorta is normal in course and caliber. There is pulmonary vasculature enhances uniformly. There are no significant filling defects. Mild cardiomegaly. IMPRESSION: 1. No evidence for pulmonary embolus. 2. Diffuse bilateral parenchymal infiltrative change The above report was generated using voice recognition software. It may contain grammatical, syntax or spelling errors. Electronically signed by: Ayden Hedrick M.D. 12/02/2017 12:46 PM Dictated Date/Time: 12/02/2017 12:38 PM
--- NOTE | 2017-12-02 13:44 | Hospitalist Progress Note ---
Hospitalist Progress Note Date of Service Dec 02, 2017. (Alondra Nesbitt PA-C) Subjective Pt evaluation today including: conversation w/ patient, physical exam, chart review, lab review, review of studies Pain: None PO Intake: Good Voiding: no voiding problems The patient was seen and examined this morning. Pt reports doing better today compared to yesterday. She is still having a cough but is asking if she can go home soon because she's unable to sleep in the hospital. She denies feeling short of breath with ambulation. She is on room air during our conversation and was finishing breakfast without difficulty. Pt ambulated in the halls and dropped to 80% on RA, and became tachycardic at 147. Additional Comments: Constitutional: No fever, No chills, No sweats, No fatigue ENT: No nasal symptoms, No sore throat Respiratory: + cough, + sputum (clear, occasional), No wheezing, No dyspnea at rest Cardiovascular: No chest pain, No palpitations Abdomen: No pain, No nausea, No vomiting, No diarrhea, No constipation Musculoskeletal: No joint pain, No muscle pain Female : No dysuria Neurologic: No weakness Endo: No fatigue (Alondra Nesbitt PA-C) Objective Vital Signs Date Time Temp Pulse Resp B/P (MAP) Pulse Ox O2 Delivery O2 Flow Rate FiO2 12/02/17 11:04 102 16 97 Nasal Cannula 4.0 12/02/17 08:00 Room Air 1.5 Nasal Cannula 12/02/17 07:34 36.8 92 20 122/79 (93) 91 Nasal Cannula 4.0 12/02/17 07:07 87 16 94 Nasal Cannula 4.0 12/02/17 00:15 Nasal Cannula 2.0 12/01/17 23:39 36.7 89 20 156/86 (109) 99 2.0 12/01/17 19:32 98 16 84 Room Air 12/01/17 15:59 95 Room Air 12/01/17 15:55 36.6 94 18 152/88 (109) 97 Room Air 12/01/17 15:29 91 16 94 Room Air (Alondra Nesbitt PA-C) Physical Exam Notes: General Appearance: WD/WN, no apparent distress, + obese (morbid) Eyes: PERRL, EOMI ENT: hearing grossly normal, pharynx normal Neck: supple, no JVD Respiratory/Chest: chest non-tender, no respiratory distress, no accessory muscle use, + pertinent finding (on RA, + faint crackles in the RML, RLL and the left mid to lower lobe. No wheezing. ) Cardiovascular: tachycardic MC=349, no murmur Abdomen: normal bowel sounds, non tender, soft Extremities: non-tender, no pedal edema, no calf tenderness Neurologic/Psychiatric: alert, oriented x 3, + pertinent finding (slightly anxious affect) Skin: normal color, warm/dry (Alondra Nesbitt, KYLE) Assessment and Plan Patient is a 52 year old female with no significant past medical history that presents with a 1 week history of cough and fatigue Community Acquired Pneumonia Right midlung and the left mid to lower lung. - CXR: There is multifocal patchy airspace consolidation, typical in appearance for pneumonia. Clinical correlation will be required and radiographic follow-up to resolution is recommended. - CTPE completed today with increased hypoxia and drop to 80% on RA with ambulation and tachycardia up to 140s. - NEGATIVE - WBC 3K, low but remains stable. Will follow. - Levaquin 750mg IV q24h started on 11/29. - CM has been on the Levaquin will only cost $9 at [facility]. Will complete a 7 day course. - Supplemental Oxygen to maintain SpO2 > 90% - encourage ambulation. -Patient was not on any oxygen at home, wean as tolerated. - Duonebs qid + q3h PRN for SOB - Continue regular diet and drinking without nausea or vomiting. - Regular Diet DVT- Lovenox subq, ambulatory Code Status - Full Resuscitation Disposition: From home, lives alone, does not have a PCP- set up with Sai Schmitt as an outpatient. Possible dc in 1-2days. (Alondra Nesbitt, KYLE) Reviewed: Pt Seen/Exam by Me (Monet Werner DO) History Pt states that she does not feel SOB when it is noted that she is desating. She states she feels fine. No chest pain. No lightheadedness/dizziness. Agree with HPI/ROS as noted by PA (Monet Werner DO) Comments General Appearance: no apparent distress, obese Eye Exam: bilateral eye normal inspection, bilateral eye other (nml sclera) Respiratory: no respiratory distress, crackles Cardiovascular: normal peripheral pulses, regular rhythm, tachycardia Gastrointestinal: non tender, soft Extremities: non-tender, no pedal edema Neurologic/Psychiatric: alert, normal mood/affect Skin Characteristics: normal color, warm/dry (Monet Werner DO) Assessment/Plan Agree with plan as outlined above CAP with hypoxia, improving on abx but still with desats on RA with ambulation in the 80s. Wean O2 as able CTA done given tachycardia and ongoing desats, but neg no hx of baseline lung disease or home o2 use Flu neg (Monet Werner, )
[2017-12-02 14:41] VITALS: PULSE 115; O2SAT 93
[2017-12-02] MEDS: ACETYLCYSTEINE 20% INHAL SOLN ***DISPENSED BY RESP. INH SCH ×2 (14:41→19:46)
[2017-12-02 15:52] VITALS: BP 147/73; PULSE 125; TEMP 36.4; O2SAT 92
[2017-12-02 19:46] VITALS: PULSE 101; O2SAT 95
[2017-12-02] MEDS: LEVOFLOXACIN 750 MG TAB PO SCH (20:34)
[2017-12-03] VITALS (8 sets, daily range): BP systolic 134–143; BP diastolic 82–87; PULSE 84–104; TEMP 36.5–37; O2SAT 90–92
[2017-12-03] MEDS: ACETYLCYSTEINE 20% INHAL SOLN ***DISPENSED BY RESP. INH SCH ×4 (07:23→19:00)
[2017-12-03] MEDS: ALBUT/IPRATROP 3MG/0.5MG NEB 3 ML VIAL INH SCH ×4 (07:23→19:00)
[2017-12-03 07:52] LABS: HEMOGLOBIN 11.9 g/dL (12.0-16.0); MEAN CELL VOLUME 94.1 fL (80-100); MEAN PLATELET VOLUME 9.6 fL (7.4-10.4); PLATELET COUNT 299 K/uL (130-400); RED CELL DISTRIBUTION WIDTH CV 13.4 % (11.5-14.5); RED CELL DISTRIBUTION WIDTH SD 46.3 fL (36.4-46.3); WHITE BLOOD COUNT 4.47 K/uL (4.8-10.8)
[2017-12-03 08:18] LABS: CREATININE 0.64 mg/dl (0.60-1.20)
[2017-12-03] MEDS: ENOXAPARIN 40 MG/0.4 ML SYR SQ SCH (08:37)
[2017-12-03] MEDS ORDERED: NURSING VERBAL MED ORDER ONE (09:45)
[2017-12-03] MEDS: GUAIFENESIN 600 MG TABCR PO SCH ×2 (11:32→20:38)
--- NOTE | 2017-12-03 15:07 | Hospitalist Progress Note ---
Hospitalist Progress Note Date of Service Dec 03, 2017. Subjective Pt evaluation today including: conversation w/ patient, physical exam, chart review, lab review, review of studies Pain: None PO Intake: Good Voiding: no voiding problems The patient was seen and examined this morning. Pt reports doing better today. She admits to cough with clear mucous production and feels there is more coming up since addition of "that nasty tasting medicine" to nebulizer treatments. She denies any f/c/s. Upon walking nursing states pt still dropped to 87% on RA and became tachycardic with HR =127 Additional Comments: Constitutional: No fever, No chills, No sweats, No fatigue ENT: No nasal symptoms, No sore throat Respiratory: + cough, + sputum (clear, occasional), No wheezing, No dyspnea at rest Cardiovascular: No chest pain, No palpitations Abdomen: No pain, No nausea, No vomiting, No diarrhea, No constipation Musculoskeletal: No joint pain, No muscle pain Female : No dysuria Neurologic: No weakness Endo: No fatigue Objective Vital Signs Date Time Temp Pulse Resp B/P (MAP) Pulse Ox O2 Delivery O2 Flow Rate FiO2 12/03/17 11:15 98 16 92 Room Air 12/03/17 08:00 Room Air Nasal Cannula 12/03/17 07:30 91 18 90 Room Air 12/03/17 07:16 37.0 98 20 143/87 (105) 92 Room Air 12/03/17 00:02 36.7 102 24 137/82 (100) 90 Room Air 12/03/17 00:00 Room Air 12/02/17 20:00 Room Air 12/02/17 19:46 101 18 95 Nasal Cannula 3.0 12/02/17 16:00 Room Air Nasal Cannula 12/02/17 15:52 36.4 125 18 147/73 (97) 92 Nasal Cannula 3.0 Physical Exam Notes: General Appearance: WD/WN, no apparent distress, + obese (morbid) Eyes: PERRL, EOMI ENT: hearing grossly normal, pharynx normal Neck: supple, no JVD Respiratory/Chest: chest non-tender, no respiratory distress, no accessory muscle use, + pertinent finding (on RA, + faint crackles in the RML, No wheezing. ) Cardiovascular: tachycardic KM=904, no murmur Abdomen: normal bowel sounds, non tender, soft Extremities: non-tender, no pedal edema, no calf tenderness Neurologic/Psychiatric: alert, oriented x 3, + pertinent finding (slightly anxious affect) Skin: normal color, warm/dry Laboratory Results Last 24 Hours Test 12/03/17 07:28 White Blood Count 4.47 K/uL Red Blood Count 3.72 M/uL Hemoglobin 11.9 g/dL Hematocrit 35.0 % Mean Corpuscular Volume 94.1 fL Mean Corpuscular Hemoglobin 32.0 pg Mean Corpuscular Hemoglobin Concent 34.0 g/dl RDW Standard Deviation 46.3 fL RDW Coefficient of Variation 13.4 % Platelet Count 299 K/uL Mean Platelet Volume 9.6 fL Creatinine 0.64 mg/dl Est Creatinine Clear Calc Drug Dose 118.8 ml/min Estimated GFR () 117.3 Estimated GFR (Non- 101.2 Assessment and Plan Patient is a 52 year old female with no significant past medical history that presents with a 1 week history of cough and fatigue Community Acquired Pneumonia Right midlung and the left mid to lower lung. - CXR: There is multifocal patchy airspace consolidation, typical in appearance for pneumonia. Clinical correlation will be required and radiographic follow-up to resolution is recommended. - CTPE completed 12/02 with increased hypoxia and drop to 80% on RA with ambulation and tachycardia up to 140s. - NEGATIVE - WBC 4.47, low but remains stable. Will follow. - Levaquin 750mg IV q24h started on 11/29. - CM has been on the Levaquin will only cost $9 at [facility]. Will complete a 7 day course. - Supplemental Oxygen to maintain SpO2 > 90% - encourage ambulation. -Patient was not on any oxygen at home, wean as tolerated. - pt has completed MA application in the even that she needs O2 at home. - Duonebs qid + q3h PRN for SOB - Continue regular diet and drinking without nausea or vomiting. DVT- Lovenox subq, ambulatory Code Status - Full Resuscitation Disposition: From home, lives alone, does not have a PCP- set up with Sai Schmitt as an outpatient. Possible dc in 1-2days pending O2 requirements.
[2017-12-03] MEDS: LEVOFLOXACIN 750 MG TAB PO SCH (20:38)
[2017-12-04 00:19] VITALS: BP 142/86; PULSE 98; TEMP 37; O2SAT 92
[2017-12-04 07:08] VITALS: PULSE 89; O2SAT 93
[2017-12-04] MEDS: ACETYLCYSTEINE 20% INHAL SOLN ***DISPENSED BY RESP. INH SCH ×2 (07:08→11:18)
[2017-12-04] MEDS: ALBUT/IPRATROP 3MG/0.5MG NEB 3 ML VIAL INH SCH ×2 (07:08→11:17)
[2017-12-04 07:21] VITALS: BP 137/82; PULSE 95; TEMP 36.4; O2SAT 91
[2017-12-04] MEDS: ENOXAPARIN 40 MG/0.4 ML SYR SQ SCH (08:01)
[2017-12-04] MEDS: GUAIFENESIN 600 MG TABCR PO SCH (08:01)
[2017-12-04] MEDS ORDERED: LVQ750 PO (10:54)
--- NOTE | 2017-12-04 11:00 | Discharge Instructions ---
Discharge Instructions Date of Service Dec 04, 2017. Admission Reason for Admission: Acute Respiratory Failure With Hypoxia Discharge Discharge Diagnosis / Problem: Community acquired Pneumonia, acute respiratory failure with hypoxia Discharge Goals Goal(s): Decrease discomfort, Improve function, Increase independence, Improve disease control Activity Recommendations Activity Limitations: per Instructions/Follow-up section Lifting Limitations: no more than 25 pounds, gradually increase as tolerated Exercise/Sports Limitations: rest today, gradually increase as tolerated May Resume Sexual Activity: when tolerated Shower/Bathe: no limitations Driving or Machine Use: no limitations . Instructions / Follow-Up Instructions / Follow-Up You were admitted to [facility] with shortness of breath with hypoxia and diagnosed with Acute hypoxic respiratory failure and community acquired multifocal pneumonia. During your stay here you were treated with intravenous antibiotics (levaquin) initially and then were transitioned to an oral tablet. You were also treated with supportive measures including oxygen and nebulizer treatments. Your breathing and heart rate improved and you were stable for discharge. You did not require oxygen at the time of discharge. Imaging studies which were completed include CXR, and were abnormal showing multifocal pneumonia. Medications: Continue taking your medications as prescribed. Continue taking levaquin x 4 more days to complete a 1 week course. Your prescription has been sent to [facility] as this is the cheapest location for this medication. Finish on 12/08. Appointments: Follow up with PCP within 1 week, an appointment has been requested for you. Current Hospital Diet Patient's current hospital diet: Regular Diet Discharge Diet Recommended Diet: Regular Diet Pending Studies Studies pending at discharge: no Medical Emergencies . Who to Call and When: Medical Emergencies: If at any time you feel your situation is an emergency, please call 911 immediately. . Non-Emergent Contact Non-Emergency issues call your: Primary Care Provider Call Non-Emergent contact if: you have a fever, temperature is above 100.5, you have any medication questions other concerns with your health. Call 911 or go directly to the Emergency Department if you experience any of the following: Chest pain, chest tightness, shortness of breath, abdominal pain , lightheadedness, dizziness, gastrointestinal bleeding, or have any other concerns regarding your health. . Past History Medical & Surgical History: (1) Community acquired pneumonia (2) Acute respiratory failure with hypoxia (3) Tachycardia (4) Obesity, morbid, BMI 40.0-49.9 . "Provider Documentation" section prepared by Ramila Nesbitt. . [place] Drug Monitoring Program Search Results: no issues identified
--- NOTE | 2017-12-04 11:08 | Discharge Summary ---
Discharge Summary Date of Service Dec 04, 2017. Discharge Summary Admission Date: Nov 30, 2017 at 00:15 Discharge Date: Dec 04, 2017 Principal Diagnosis: Acute respiratory failure with hypoxia, CAP Problems/Secondary Diagnoses: Medical Problems: (1) Acute respiratory failure with hypoxia (2) Obesity, morbid, BMI 40.0-49.9 (3) Tachycardia (4) Community Acquired pneumonia Procedures: 2 view Chest 12/04/17 IMPRESSION: There is multifocal patchy airspace consolidation, typical in appearance for pneumonia. Clinical correlation will be required and radiographic follow-up to resolution is recommended. CTPE angio with 12/02/17 IMPRESSION: 1. No evidence for pulmonary embolus. 2. Diffuse bilateral parenchymal infiltrative change Medication Reconciliation New Medications: Levofloxacin (Levofloxacin) 750 Mg Tab 750 MG PO PM for 4 Days, #4 TAB Continued Medications: Ascorbic Acid (Vitamin C) Unknown Strength Cap 1 CAP PO BID Multivitamins/Minerals (Mvi With Minerals) Tab 1 TAB PO DAILY, TAB [id number] W/ Apap (Tylenol Cold & Flu Severe) 1 Tab Tab 2 TABS PO TID PRN for FLU SYMPTOMS Discharge Exam The patient was seen and examined this morning. Pt reports feeling well today. Breathing has significantly improved and she is doing fine on room air at rest. Pt ambulated to the bathroom and showered this morning without dyspnea. She denies fever, sweats and chills. Pt is agreeable to home oxygen if she requires this, and states she will be able to afford it. CM was in earlier and spoke with her regarding the out of pocket cost. ROS: Constitutional: No fever, sweats or chills Eyes: No diplopia, no worsening or blurred vision ENT: normal hearing, no trouble swallowing Respiratory: No cough, sputum, dyspnea at rest or on exertion Cardiovascular: No chest pain, tightness or palpitations Abdomen: No pain, nausea, vomiting, diarrhea or constipation Musculoskeletal: No joint pain, calf pain, swelling Neurologic: No weakness, numbness/tingling, or balance problems Psychiatric: No anxiety or depression Skin: No rash or itch PE: General: awake, alert, no apparent distress, morbidly obese Head: Normocephalic, atraumatic ENT: PERRL, EOMI, no pharyngeal exudate, mucous membranes moist Chest: Clear to auscultation, on room air, no adventitious breath sounds, no wheezing rales or rhonchi. Cardiac: Slightly tachycardic with heart rate in the 90s, no murmur, no JVD, normal peripheral pulses, good capillary refill Abdominal: NABS x 4 quadrants, soft, nontender to palpation, no rebound, guarding or tenderness Extremities: Normal inspection, no peripheral edema or erythema, calfs nontender to palpation Psych: Normal mood and affect Neuro: AAO x 3, no motor deficits, speech is clear, no peripheral sensory deficits Hospital Course Patient is a 52 year old female with no significant past medical history that presents with a 1 week history of cough and fatigue Acute hypoxic respiratory failure Community Acquired Pneumonia Right midlung and the left mid to lower lung. - CXR: There is multifocal patchy airspace consolidation, typical in appearance for pneumonia. Clinical correlation will be required and radiographic follow-up to resolution is recommended. - CTPE completed 12/02 with increased hypoxia and drop to 80% on RA with ambulation and tachycardia up to 140s. - NEGATIVE - WBC 4.47, low but remains stable. Will follow. - Levaquin 750mg IV q24h started on 11/29. - CM has been on the Levaquin will only cost $9 at [facility]. Will complete a 7 day course. - Supplemental Oxygen to maintain SpO2 > 90% - encourage ambulation. Pt was weaned to room air with ambulation. She had started [place] application and would have been able to afford o2 had she needed it, however a formal two-step completed prior to discharge and pt did not require oxygen. - Duonebs qid with mucomyst + q3h PRN for SOB - Continue regular diet and drinking without nausea or vomiting. DVT- Lovenox subq, ambulatory Code Status - Full Resuscitation Disposition: From home, lives alone, does not have a PCP- set up with Sai Schmitt as an outpatient. Discharge today. Total Time Spent: Greater than 30 minutes This includes examination of the patient, discharge planning, medication reconciliation, and communication with other providers. Discharge Instructions Please refer to the electronic Patient Visit Report (Discharge Instructions) for additional information. Follow-Up Follow up with your Primary Care Provider within 1 week. Additional Copies To Sai Schmitt III, CRNP
[2017-12-04 11:18] VITALS: PULSE 103; O2SAT 94
[2017-12-04 12:09] VITALS: BP 137/82; PULSE 103; TEMP 36.4; O2SAT 94
== END 2017-12-04 14:21 | disposition home or self-care (01) | DRG 193 ==
LOC: C.EDB 19:46 → C.MS4W 11-30 00:15 → ENRESERV 11-30 01:28 → C.MS4W 11-30 02:23
PROVIDERS: ADMIT Student in an Organized Health Care Education/Training Program; ATTEND Hospitalist
DX: J18.9 Pneumonia, unspecified organism (principal); J96.01 Acute respiratory failure with hypoxia; Z68.41 Body mass index [BMI] 40.0-44.9, adult; E66.01 Morbid (severe) obesity due to excess calories; R00.0 Tachycardia, unspecified; Z88.0 Allergy status to penicillin